=== PATIENT | male | born 1990 | race Caucasian/White ===

== ENCOUNTER 2022-01-12 09:19 | Inpatient (IN) | payer OTHER ==
[~2022-01-12] VITALS: Ht 165.1 cm; Wt 71.7 kg
[2022-01-12] MEDS ORDERED: MAGNESIUM SULFATE 2 GM, MVI, ADULT NO.1 WITH VIT K 10 ML, THIAMINE 100 MG, FOLIC ACID 1... IV ONE ×5 (09:30)
[2022-01-12 09:50] LABS: BASOPHILS % (AUTO) 0.3 % (0.0-2.0); EOSINOPHILS % (AUTO) 0 % (1.0-6.0); HEMATOCRIT 41.3 % (41-53); HEMOGLOBIN 14.3 g/dL (13.5-17.5); LYMPHOCYTES # (AUTO) 0.9 K/uL (1.0-4.8); LYMPHOCYTES % (AUTO) 8.2 % (22.0-44.0); MEAN CORPUSCULAR HEMOGLOBIN 30.5 pg (26.0-34.0); MEAN CORPUSCULAR HGB CONC 34.7 G/dL (31.0-37.0); MEAN CORPUSCULAR VOLUME 88 fL (80-100); MONOCYTES # (AUTO) 0.7 K/uL (0.1-1.0); MONOCYTES % (AUTO) 6.4 % (2.0-9.0); NEUTROPHILS # (AUTO) 8.9 K/uL (1.8-7.7); NEUTROPHILS % (AUTO) 85.1 % (40.0-70.0); PLATELET COUNT (AUTO) 276 K/uL (150-450); RED BLOOD CELL COUNT(AUTO) 4.71 MIL/uL (4.50-5.90); RED CELL DISTRIBUTION WIDTH 13.4 % (11.5-14.5)
[2022-01-12 09:51] LABS: COVID AG,FIA SOURCE NASAL SWAB
[2022-01-12 09:59] LABS: ANION GAP 10 mmol/L (8-16); CALCIUM, TOTAL 8.5 mg/dL (8.8-10.5); CARBON DIOXIDE 23 mmol/L (22-29); CHLORIDE 101 mmol/L (98-107); CREATININE 0.96 mg/dL (0.60-1.30); GLOMERULAR FILTR. RATE CALC > 60 mL/min (>60); GLUCOSE,RANDOM 102 mg/dL (70-110); SODIUM SERUM 134 mmol/L (136-145); UREA NITROGEN, BLOOD 12 mg/dL (7-18)
[2022-01-12 10:01] LABS: AMPHET/METH SCREEN,URINE NEGATIVE (NEGATIVE); BARBITURATE SCREEN, URINE NEGATIVE (NEGATIVE); BENZODIAZEPINES SCREEN,URINE NEGATIVE (NEGATIVE); CANNABINOID SCREEN,URINE POSITIVE (NEGATIVE); COCAINE SCREEN,URINE NEGATIVE (NEGATIVE); METHADONE SCREEN, URINE NEGATIVE (NEGATIVE); OPIATE SCREEN,URINE NEGATIVE (NEGATIVE); PHENCYCLIDINE SCREEN,URINE NEGATIVE (NEGATIVE)
[2022-01-12 10:05] LABS: ALANINE AMINOTRANSFERASE 27 U/L (12-78); ALKALINE PHOSPHATASE 61 U/L (46-116); ASPARTATE AMINOTRANSFERASE 38 U/L (15-37); BILIRUBIN,TOTAL 1.5 mg/dL (0.1-1.0); TOTAL PROTEIN, SERUM 7.5 g/dL (6.4-8.2)
[2022-01-12] MEDS ORDERED: LORazepam 1 MG TABLET PO ONE (10:15)
[2022-01-12] MEDS ORDERED: 0.9% SODIUM CHLORIDE 10 ML SYRINGE IVP PRN (11:15)
[2022-01-12 14:54] VITALS: BP 120/69
[2022-01-12] MEDS ORDERED: LORazepam 2 MG TABLET PO PRN (19:00)
[2022-01-12 19:32] VITALS: BP 115/69
[2022-01-12 23:30] VITALS: BP 122/73
[2022-01-13] MEDS ORDERED: ALBUTEROL SULFATE 2.5 MG/0.5 ML NEB SOLUTION NEB PRN
[2022-01-13] MEDS ORDERED: ONDANSETRON HCL 4 MG/2 ML VIAL IVP PRN
[2022-01-13] MEDS ORDERED: MORPHINE SULFATE 2 MG/ML SYRINGE IVP PRN
[2022-01-13] MEDS ORDERED: IPRATROPIUM BROMIDE 0.5 MG/2.5 ML NEB SOLUTION NEB PRN
[2022-01-13] MEDS ORDERED: HYDROCODONE/ACETAMINOPHEN 5-325 MG TABLET PO PRN
[2022-01-13] MEDS ORDERED: MAGNESIUM HYDROXIDE SUSPENSION 30 ML UDCUP PO PRN
[2022-01-13] MEDS ORDERED: ZOLPIDEM TARTRATE 5 MG TABLET PO PRN
[2022-01-13] MEDS ORDERED: BISACODYL 10 MG RECTAL RECTAL SUPPOSITORY PR PRN
[2022-01-13] MEDS ORDERED: 1: MAGNESIUM SULFATE 2 GM, MVI, ADULT NO.1 WITH VIT K 10 ML, THIAMINE 100 MG, FOLIC ACID IV SCH ×5 (00:30)
[2022-01-13] MEDS: HEPARIN SODIUM,PORCINE 5,000 UNITS/ML VIAL SQ SCH ×2 (00:52→08:37)
[2022-01-13 04:46] VITALS: BP 122/73
[2022-01-13] MEDS ORDERED: LORazepam 2 MG TABLET PO PRN (07:00)
[2022-01-13 07:42] VITALS: BP 118/79
[2022-01-13] MEDS: PANTOPRAZOLE SODIUM 40 MG/VIAL IVP SCH (08:37)
[2022-01-13] MEDS: DOCUSATE SODIUM 100 MG CAPSULE PO SCH ×2 (08:37→20:19)
[2022-01-13] MEDS ORDERED: LORazepam 2 MG TABLET PO SCH (09:00)
[2022-01-13 11:30] VITALS: BP 118/70
[2022-01-13] MEDS ORDERED: LORazepam 2 MG/ML VIAL IVP PRN (11:30)
[2022-01-13 16:33] VITALS: BP 122/70
[2022-01-13] MEDS: ACETAMINOPHEN 325 MG TABLET PO PRN (17:39)
[2022-01-13 19:46] VITALS: BP 121/68
[2022-01-13] MEDS: MIRTAZAPINE 15 MG TABLET PO SCH (19:55)
[2022-01-14 05:38] VITALS: BP 115/74
[2022-01-14 07:34] VITALS: BP 121/76
[2022-01-14] MEDS: DOCUSATE SODIUM 100 MG CAPSULE PO SCH ×2 (09:00→20:12)
[2022-01-14] MEDS: PANTOPRAZOLE SODIUM 40 MG/VIAL IVP SCH (09:05)
[2022-01-14] MEDS: MULTIVITAMINS WITH MINERALS, THERAPEUTIC TABLET PO SCH (09:05)
[2022-01-14] MEDS: ACETAMINOPHEN 325 MG TABLET PO PRN (09:06)
[2022-01-14 15:35] VITALS: BP 123/59
[2022-01-14 20:05] VITALS: BP 125/65
[2022-01-14] MEDS: MIRTAZAPINE 15 MG TABLET PO SCH (20:11)
[2022-01-15] MEDS: ACETAMINOPHEN 325 MG TABLET PO PRN ×3 (02:56→20:29)
[2022-01-15 05:00] VITALS: BP 118/67
[2022-01-15] MEDS ORDERED: LORazepam 1 MG TABLET PO PRN (07:00)
[2022-01-15] MEDS: DOCUSATE SODIUM 100 MG CAPSULE PO SCH ×2 (08:20→20:30)
[2022-01-15] MEDS: MULTIVITAMINS WITH MINERALS, THERAPEUTIC TABLET PO SCH (08:20)
[2022-01-15 08:21] VITALS: BP 114/75
[2022-01-15] MEDS: PANTOPRAZOLE SODIUM 40 MG/VIAL IVP SCH (08:21)
[2022-01-15] MEDS ORDERED: LORazepam 1 MG TABLET PO SCH (09:00)
[2022-01-15] MEDS: RisperiDONE 0.5 MG TABLET PO SCH (10:58)
[2022-01-15 12:01] VITALS: BP 115/67
[2022-01-15 16:14] VITALS: BP 101/63
[2022-01-15 19:50] VITALS: BP 121/66
[2022-01-15] MEDS: MIRTAZAPINE 15 MG TABLET PO SCH (20:29)
[2022-01-16 04:55] VITALS: BP 116/68
[2022-01-16] MEDS ORDERED: LORazepam 1 MG TABLET PO PRN (07:00)
[2022-01-16 08:47] VITALS: BP 130/76
[2022-01-16] MEDS ORDERED: FAMOTIDINE 20 MG TABLET PO SCH (09:00)
[2022-01-16] MEDS: DOCUSATE SODIUM 100 MG CAPSULE PO SCH ×2 (09:00→09:29)
[2022-01-16] MEDS: MULTIVITAMINS WITH MINERALS, THERAPEUTIC TABLET PO SCH (09:24)
[2022-01-16] MEDS: RisperiDONE 0.5 MG TABLET PO SCH (09:25)
[2022-01-16] MEDS: ACETAMINOPHEN 325 MG TABLET PO PRN (09:26)
[2022-01-16] MEDS ORDERED: MIRT-89 PO (11:47)
[2022-01-16] MEDS ORDERED: RISP0.5T39 PO (11:48)
[2022-01-16] MEDS ORDERED: ACET-3207 PO (11:51)
[2022-01-16] MEDS ORDERED: MAGN-160 PO (11:53)
== END 2022-01-16 15:50 | DRG 897 ==
LOC: EMS 09:23 → 6S 13:50
PROVIDERS: ADMIT Hospitalist; ATTEND Hospitalist
DX: F10.139 Alcohol abuse with withdrawal, unspecified (principal); F33.2 Major depressive disorder, recurrent severe without psychotic features; F12.90 Cannabis use, unspecified, uncomplicated; F41.9 Anxiety disorder, unspecified; Z20.822 Contact with and (suspected) exposure to COVID-19; Y90.9 Presence of alcohol in blood, level not specified
CPT/HCPCS: 80053; 85025; 93005; 99285; C9113; G0480; J1644; J2060; J3411; J3475; J3490; J7030